=== PATIENT | female | born 1995 | race Caucasian/White ===

== ENCOUNTER 2021-11-14 16:06 | Outpatient (CLI) | payer OTHER, SELFPAY ==
--- NOTE | ~2021-11-14 | US_ITS ---
EXAMINATION: US OB <=14 wk fetus w TV DATE: 11/14/2021 17:08 INDICATION: Cramping in . TECHNIQUE: Real-time transabdominal and transvaginal pelvic ultrasound was performed. COMPARISON: None. FINDINGS: TRANSABDOMINAL ULTRASOUND: The uterus measures 6.3 x 4.0 x 4.5 cm. TRANSVAGINAL ULTRASOUND: There is no visible intrauterine gestational sac. The endometrial complex me asures 14 mm in thickness. The right ovary measures 4.3 x 2.2 x 2.4 cm. The left ovary is not visuali zed. There is physiologic free fluid in the pelvis. IMPRESSION: 1. No visible intrauterine gestational sac, which may be normal in early . Spontaneous abor tion and ectopic are not excluded. Serial beta hCGs are recommended. Reviewed, dictated and finalized at location A. PROVOST IMPRESSION: 1. No visible intrauterine gestational sac, which may be normal in early pregn nohemy. Spontaneous and ectopic are not excluded. Serial beta hCGs are recommended.
== END 2021-11-14 16:07 | disposition home or self-care (01) ==
LOC: ANHIMG 16:12
PROVIDERS: Visit Provider Obstetrics & Gynecology Gynecology
DX: O26.899 Other specified pregnancy related conditions, unspecified trimester (principal); Z3A.00 Weeks of gestation of pregnancy not specified
CPT/HCPCS: 76801; 76817

== ENCOUNTER 2021-11-17 15:33 | Outpatient (RCR) | payer OTHER, SELFPAY | END 2022-02-13 23:59 | disposition home or self-care (01) | LOC: ANHLAB 15:33 | PROVIDERS: PCP Nurse Practitioner Family; Visit Provider Obstetrics & Gynecology Gynecology | DX: Z32.01 Encounter for pregnancy test, result positive (principal) | CPT/HCPCS: 36415; 84702 ==

== ENCOUNTER 2021-12-05 15:17 | Outpatient (CLI) | payer OTHER, SELFPAY ==
--- NOTE | ~2021-12-05 | US_ITS ---
EXAMINATION: US OB <=14 wk fetus w TV DATE: 12/05/2021 15:56 INDICATION: of uncertain date TECHNIQUE: Real-time pelvic transabdominal and transvaginal ultrasound was performed. COMPARISON: 11/14/2021 FINDINGS: The uterus measures 9.9 x 5.2 x 3.9 cm. There is an intrauterine gestational sac. There is a 1.3 x 1.1 cm hypoechoic area adjacent to the gestational sac. A yolk sac is identified. hear t motion is identified measuring 129 beats per minute (bpm) by M-mode Doppler. The crown rump l ength measures 11 mm , which correlates with an estimated gestational age of 7 weeks and 1 day(s) (+/ -) 5 day(s). The right ovary measures 3.7 x 2.4 x 2.2 cm. The left ovary measures 3.5 x 2.1 x 1.1 cm. There is nor mal vascular flow in the ovaries. There is no free fluid in the pelvis. IMPRESSION: 1. Live intrauterine with an estimated gestational age of 7 weeks and 1 day(s) (+/-) 5 day( s) and an estimated delivery date of 07/23/2022. 2. Small subchorionic hematoma. Reviewed, dictated and finalized at location A. NSION AGENT IMPRESSION: 1. Live intrauterine with an estimated gestational age of 7 weeks and 1 day(s) (+/-) 5 day(s) and an estimated delivery date of 07/23/2022. 2. Small subchorionic hematoma.
== END 2021-12-05 15:18 | disposition home or self-care (01) ==
LOC: ANHIMG 15:20
PROVIDERS: PCP Nurse Practitioner Family; Visit Provider Obstetrics & Gynecology Gynecology
DX: Z36.87 Encounter for antenatal screening for uncertain dates (principal); O46.91 Antepartum hemorrhage, unspecified, first trimester; Z3A.01 Less than 8 weeks gestation of pregnancy
CPT/HCPCS: 76801; 76817

== ENCOUNTER 2021-12-27 15:43 | Outpatient (CLI) | payer OTHER, SELFPAY ==
--- NOTE | ~2021-12-27 | US_ITS ---
EXAMINATION: US OB <= 14 weeks fetus DATE: 12/27/2021 16:15 INDICATION: Follow-up subchorionic hematoma TECHNIQUE: Real-time transabdominal obstetric ultrasound. FINDINGS: Ultrasound dated 12/05/2021 and 11/14/2021 The uterus measures 12 x 5.6 x 7.7 cm. There is an intrauterine gestational sac, with pole iden tified. There is a small residual subchorionic hematoma measuring 8 x 5 x 5 mm, decreased in size com pared with prior study when it measured 1.3 x 1.1 x 0.6 cm. The crown rump length measures 3.64 cm.. heart tones are identified measuring 161 bpm.. The ovaries are within normal limits. IMPRESSION: 1. SL IUP with an EGA of 10 weeks, 2 days (EDC by initial ultrasound of 07/23/2022). 2: Decreased size of small residual subchorionic hemorrhage. Reviewed, dictated and finalized at location A. IMPRESSION: 1. SL IUP with an EGA of 10 weeks, 2 days (EDC by initial ultrasound of 022). 2: Decreased size of small residual subchorionic hemorrhage.
== END 2021-12-27 15:44 | disposition home or self-care (01) ==
LOC: ANHIMG 15:44
PROVIDERS: PCP Nurse Practitioner Family; Visit Provider Obstetrics & Gynecology Gynecology
DX: O36.8910 Maternal care for other specified fetal problems, first trimester, not applicable or unspecified (principal); Z3A.10 10 weeks gestation of pregnancy
CPT/HCPCS: 76801

== ENCOUNTER 2022-01-24 15:39 | Outpatient (CLI) | payer OTHER, SELFPAY ==
--- NOTE | ~2022-01-24 | US_ITS ---
EXAMINATION: US OB follow up DATE: 01/24/2022 16:10 INDICATION: Subchorionic hematoma during first trimester TECHNIQUE: Real-time ultrasound of the pelvis was performed. The interpreting radiologist was not pre sent for the study. COMPARISON: 12/27/2021 FINDINGS: There is a single living fetus in breech presentation. The placenta is anterior. A 1.7 x 1. 8 x 0.7 cm hypoechoic area persists adjacent to the gestational sac. cardiac activity and movement are noted. heart rate is 140 beats per minute (bpm). The amniotic fluid index is subj ectively normal. The following biometric data were obtained: Biparietal diameter (BPD): 2.9 cm; head circumference (HC): 10.3 cm; abdominal circumference (AC): 9. 9 cm; femur length (FL): 1.6 cm. These measurements are concordant. Estimated weight is 118 g +/- 17 g, which correlates with the 94th percentile when 07/23/2022 i s used as estimated date of delivery. As single measurements, these parameters are each equal to the following estimated gestational ages w ith ranges of +/- 2 standard deviations: BPD: 15 weeks 1 days +/- 1 weeks 1 days. HC: 14 weeks 6 days +/- 1 weeks 1 days. AC: 16 weeks 0 days +/- 1 weeks 5 days. FL: 14 weeks 4 days +/- 1 weeks 3 days. estimated gestational age based solely on measurements from this exam is 15 weeks 1 days +/- 1 weeks 0 days. IMPRESSION: 1. Single living fetus in breech presentation. 2. Persistent hypoechoic area adjacent to the gestational sac, slightly increased in size, probable s ubchronic hemorrhage. Reviewed, dictated and finalized at location F. IMPRESSION: 1. Single living fetus in breech presentation. 2. Persistent hypoechoic area adjacent to the gestational sac, slightly increas ed in size, probable subchronic hemorrhage.
== END 2022-01-24 15:40 | disposition home or self-care (01) ==
LOC: ANHIMG 15:40
PROVIDERS: PCP Nurse Practitioner Family; Visit Provider Obstetrics & Gynecology Gynecology
DX: O36.8920 Maternal care for other specified fetal problems, second trimester, not applicable or unspecified (principal); Z3A.15 15 weeks gestation of pregnancy
CPT/HCPCS: 76816

== ENCOUNTER 2022-03-09 15:23 | Outpatient (CLI) | payer OTHER, SELFPAY ==
--- NOTE | ~2022-03-09 | US_ITS ---
EXAMINATION: US OB /maternal detail DATE: 03/09/2022 16:59 INDICATION: Second trimester anatomic survey, subchronic hemorrhage follow-up TECHNIQUE: Real-time ultrasound of the pelvis was performed. COMPARISON: None. FINDINGS: There is a single living fetus in transverse lie. The placenta is anterior. The previously described hematoma is not identified. heart rate is 136 beats per minute (bpm). cardiac activity a nd movement are noted. The amniotic fluid index is 11.6 cm which is normal. The following anatomy was identified as normal: 4 chamber heart 3 vessel cord cord insertion kidneys urinary bladder stomach spine diaphragm ventricles cisterna magna cerebellum The following biometric data were obtained: Biparietal diameter (BPD): 4.7 cm; head circumference (HC): 18..5 cm; abdominal circumference (AC): 1 6.5 cm; femur length (FL): 3.7 cm. These measurements are concordant. Estimated weight is 430 g +/- 64 g, which correlates with the 91st percentile when 07/23/2022 i s used as estimated date of delivery. As single measurements, these parameters are each equal to the following estimated gestational ages w ith ranges of +/- 2 standard deviations: BPD: 20 weeks 1 days +/- 1 weeks 5 days. HC: 20 weeks 6 days +/- 1 weeks 3 days. AC: 21 weeks 4 days +/- 2 weeks 0 days. FL: 21 weeks 6 days +/- 1 weeks 6 days. estimated gestational age based solely on measurements from this exam is 21 weeks 1 days +/- 1 weeks 3 days. IMPRESSION: 1. Single living fetus in transverse lie. 2. Estimated weight is 430 g +/- 64 g, which correlates with the 91st percentile when 2 is used as estimated date of delivery. Reviewed, dictated and finalized at location F. IMPRESSION: 1. Single living fetus in transverse lie. 2. Estimated weight is 430 g +/- 64 g, which correlates with the 91st per centile when 07/23/2022 is used as estimated date of delivery.
== END 2022-03-09 15:24 | disposition home or self-care (01) ==
PROVIDERS: PCP Nurse Practitioner Family; Visit Provider Obstetrics & Gynecology Gynecology
DX: O36.8910 Maternal care for other specified fetal problems, first trimester, not applicable or unspecified (principal)
CPT/HCPCS: 76805

== ENCOUNTER 2022-05-22 15:33 | Outpatient (CLI) | payer OTHER, SELFPAY ==
--- NOTE | ~2022-05-22 | US_ITS ---
EXAMINATION: US OB follow up DATE: 05/22/2022 16:44 INDICATION: Size greater than dates. TECHNIQUE: Real-time ultrasound of the pelvis was performed. COMPARISON: Ultrasound 03/09/2022, 11/14/2021, 12/05/2021 FINDINGS: There is a single living fetus in vertex presentation. The placenta is anterior. heart rate is 155 beats per minute (bpm). The amniotic fluid index is 18.4 cm, which is normal. The cervical lengt h is 3.7 cm on transabdominal images. The following biometric data were obtained: Biparietal diameter (BPD): 8.2 cm; head circumference (HC): 30.1 cm; abdominal circumference (AC): 27 .5 cm; femur length (FL): 6.2 cm. These measurements are concordant. Estimated weight is 1904 g +/- 286 g, which correlates with the 71st percentile when 07/23/22 i s used as estimated date of delivery. As single measurements, these parameters are each equal to the following estimated gestational ages: BPD: 34 weeks 2 days. HC: 33 weeks 3 days. AC: 31 weeks 4 days. FL: 32 weeks 0 days. estimated gestational age based solely on measurements from this exam is 32 weeks 6 days +/- 2 weeks 2 days. IMPRESSION: 1. Single living fetus in vertex presentation. 2. Estimated weight is 1904 g +/- 286 g, which correlates with the 71st percentile when is used as estimated date of delivery. This date was set by ultrasound on 12/05/21. Reviewed, dictated and finalized at location A. IMPRESSION: 1. Single living fetus in vertex presentation. 2. Estimated weight is 1904 g +/- 286 g, which correlates with the 71st percentile when 07/23/22 is used as estimated date of delivery. This date was s et by ultrasound on 12/05/21.
== END 2022-05-22 15:34 | disposition home or self-care (01) ==
PROVIDERS: PCP Nurse Practitioner Family; Visit Provider Obstetrics & Gynecology Gynecology
DX: O36.63X0 Maternal care for excessive fetal growth, third trimester, not applicable or unspecified (principal); Z3A.32 32 weeks gestation of pregnancy
CPT/HCPCS: 76816

== ENCOUNTER 2022-07-06 17:54 | Inpatient (IN) | payer OTHER, SELFPAY ==
[2022-07-06] VITALS (51 sets, daily range): BP systolic 99–140; BP diastolic 53–94; PULSE 70–101; TEMP 36.4–36.9; O2SAT 98–100; BMI 29.5
[2022-07-06] MEDS: LACTATED RINGERS 1,000 ML 125 ML IV CONT ×2 (18:46→20:19)
[2022-07-06 18:54] LABS: Basophils Percent Auto 0.2 % (0.2-1.2); Eosinophils Absolute Auto 0.1 K/mm3 (0-0.3); Eosinophils Percent Auto 0.6 % (0-4.4); Hematocrit 44.1 % (37.0-47.0); Hemoglobin 14.7 g/dL (12.0-15.0); Immature Granulocyte Absolute 0.04 K/mm3 (0.00-0.031); Immature Granulocyte Percent A 0.5 % (0-0.5); Lymphocytes Absolute Auto 1.87 K/mm3 (0.9-3.2); Lymphocytes Percent Auto 22.2 % (18.3-44.2); Mean Corpuscular HGB Conc 33.3 g/dl (32-36); Mean Corpuscular Hemoglobin 31.6 pg (26-34); Mean Corpuscular Volume 94.8 fl (80-100); Mean Platelet Volume 10.4 fl (7.4-10.4); Monocytes Absolute Auto 0.6 K/mm3 (0.1-0.6); Monocytes Percent Auto 6.8 % (2.6-8.5); Neutrophils Absolute Auto 5.9 K/mm3 (1.3-6.7); Neutrophils Percent Auto 69.7 % (45.5-73.1); Platelet Count Result 247 k/mm3 (150-375); Red Blood Count 4.65 M/mm3 (4.2-5.4); Red Cell Distribution Width 12.8 % (11.5-14.5); White Blood Count 8.4 K/mm3 (4.5-10.0)
--- NOTE | 2022-07-06 19:22 | WPDANESEPP ---
Anes - Eval Pre Procedure Procedure: labor epidural Date/Time: 07/06/22 19:22 Surgeon: liborio Preop Diagnosis: pain during labor Pre Op Diagnosis: LEAKING Patient Data Age: 26 Gender: F Height: Weight: Allergies Allergy/AdvReac Type Severity Reaction Status Date / Time No Known Allergies Allergy Verified 06/25/22 15:39 Home Medications Medication Instructions Recorded Confirmed Type ergocalciferol (vitamin D2) 1,250 1,250 mcg PO WEEKLY 06/25/22 06/25/22 History mcg (50,000 unit) capsule (Vitamin D2) magnesium 250 mg tablet 250 mg PO BID 06/25/22 06/25/22 History prenat.vits,grzegorz,dyl-bkxz-ltiev 1 tablet PO DAILY 06/25/22 06/25/22 History Laboratory Tests 07/06/22 07/06/22 18:46 18:46 WBC 8.4 K/mm3 K/mm3 (4.5-10.0) RBC 4.65 M/mm3 M/mm3 (4.2-5.4) Hgb 14.7 g/dL g/dL (12.0-15.0) Hct 44.1 % % (37.0-47.0) MCV 94.8 fl fl (80-100) MCH 31.6 pg pg (26-34) MCHC 33.3 g/dl g/dl (32-36) RDW 12.8 % % (11.5-14.5) Plt Count 247 k/mm3 k/mm3 (150-375) MPV 10.4 fl fl (7.4-10.4) Immature Gran % (Auto) 0.5 % % (0-0.5) Neut % (Auto) 69.7 % % (45.5-73.1) Lymph % (Auto) 22.2 % % (18.3-44.2) [place] % (Auto) 6.8 % % (2.6-8.5) Eos % (Auto) 0.6 % % (0-4.4) Baso % (Auto) 0.2 % % (0.2-1.2) Lymph # (Auto) 1.87 K/mm3 K/mm3 (0.9-3.2) [place] # (Auto) 0.6 K/mm3 K/mm3 (0.1-0.6) Eos # (Auto) 0.1 K/mm3 K/mm3 (0-0.3) Baso # (Auto) 0.0 K/mm3 K/mm3 (0.0-0.1) Abs Immat Gran (auto) 0.04 K/mm3 H K/mm3 (0.00-0.031) Absolute Neuts (auto) 5.9 K/mm3 K/mm3 (1.3-6.7) Absolute Nucleated RBC 0.0 K/mm3 K/mm3 (0.0-0.012) Nucleated RBC % 0.0 % % (0.0-0.2) RPR Pending Patient hx anesthesia problems: none Family hx anesthesia problems: none Results Review: All pre-operative results and documents have been reviewed as part of the pre-operative evaluation. [facility] Past Medical History Medical History (Updated 07/06/22 @ 19:23 by Zaida Delgado CRNA) Intrauterine Family History Family History (Updated 06/25/22 @ 15:50 by Kathryn Ceballos RN) Mother Diabetes mellitus Osteoporosis History of thyroidectomy, total Thyroid ca Social History Social History Substance use: never Spiritual care concerns: No Exam Day of Procedure 07/06/22 19:22
--- NOTE | 2022-07-06 20:14 | LDADM ---
This patient, Marie Greene, was admitted to Labor/Delivery/Recovery 108 on 07/06/22 at 17:54. Plans for labor, pain management and were discussed with patient. Patient/family oriented to hospital policies and general routines including ID bracelet, bed and alarms, visiting hours, pain management, procedures, bathroom and other care routines, personal items, smoking policy, room service/diet and guest tray routines, security routines, and visiting hours. Patient/Family are encouraged to report perceived risks to care and to ask questions if they do not understand what they are told or what they should do. See OBIX for further documentation.
[2022-07-07] VITALS (62 sets, daily range): BP systolic 101–173; BP diastolic 54–151; PULSE 69–144; RESP 16; TEMP 36.6–37.3; O2SAT 95–100
[2022-07-07] MEDS: OXYTOCIN 30 UNITS/NS 500 ML 30 UNITS/500 ML BAG IV CONT (00:55)
[2022-07-07] MEDS: LACTATED RINGERS 1,000 ML 125 ML IV CONT (01:45)
--- NOTE | 2022-07-07 01:59 | WPDHPUPDATE1 ---
History and Physical Update Update Date/Time: 07/07/22 01:59 History and Physical has been reviewed, including an updated exam of the patient. There are NO changes in the patient's condition. Risks, benefits, and alternatives have been discussed and questions answered. Patient agrees to proceed with procedure.
--- NOTE | 2022-07-07 01:59 | WPDOBADMIT ---
Obstetrics - Admit Note Admission Note: record reviewed. No pertinent additions to the history and/or any subsequent changes in the physical findings that are not consistent with the expected course of the were found. Additions to the history and/or subsequent changes in the physical findings follow. None.
--- NOTE | 2022-07-07 02:00 | PM.OBPRVD ---
OB - Delivery Note Procedure Induction method: None Delivery augmentation: Pitocin Delivery monitor: External FHT and External Uterine Route of delivery: Episiotomy description: None Laceration Description: Perineal - 2nd Degree Delivery repair: chromic Specimen: No Quantitative Blood Loss (ml): 400 Anesthesia type: Epidural Disposition: Floor Complications: none Narrative: Patient prepped and draped in the usual manner for this procedure. Maternal expulsive efforts readily delivered vertex in the rest of baby without difficulty. Cord was clamped and cut placenta delivered spontaneously. Cervix vagina vulva were inspected with second-degree midline laceration noted. This was approximated using 2-0 chromic running interlocking manner with good approximation of the vaginal tissue deep to huynh the subcuticular layer. There was also multiple small oozing sites from the vaginal wall which did not require suturing and packing was left in placed. At this point the procedure was considered terminated with the immediate postop physician mother and baby doing well. Baby Weeks of gestation at delivery: 37 Infant gender: Male Weight (pounds): 7 Weight (ounces): 5 presentation: vertex Placenta delivery description: Spontaneous Cord Vessel Description: 3 Vessels score one minute: 8 score five minutes: 9
[2022-07-07] MEDS: BENZOCAINE 20% AER SPR (*SP) 56 GM CAN 1 SPRAY TOPICAL (04:06)
[2022-07-07] MEDS: WITCH HAZEL 40 PADS 1 PAD TOPICAL (04:06)
[2022-07-07] MEDS: IBUPROFEN 600 MG TABLET PO ×2 (04:06→10:43)
--- NOTE | 2022-07-07 05:36 | PC.NURSE ---
Patient transferred to post room #283 via (W/C). Support person present. Oriented to unit, room, information board, rooming in, admission packet and security measures. Patient verbalizes understanding.
--- NOTE | 2022-07-07 08:00 | PC.NURSE ---
Breast pump provided due to separation from infant. Instructions given on cleaning, care, usage, that there should be no pain, pumping schedule for milk production, collection, and storage of human milk. Patient was assessed for correct placement, flange size, to pump for comfort and nipple stretching/stimulation for adequate milk production every 3 hours (8 times in 24 hours).
[2022-07-07] MEDS: ACETAMINOPHEN 325 MG TABLET 650 MG PO (08:03)
[2022-07-07] MEDS: DOCUSATE SODIUM 100 MG CAPSULE PO (08:03)
[2022-07-07] MEDS: MULTIVIT/MIN/PREN/FOL AC/IRON TABLET 1 TAB PO (08:03)
--- NOTE | 2022-07-07 08:29 | P.DS_ITS ---
DS: Admitting Diagnosis Discharge Date 07/07/2022 Admitting Diagnosis OB - DS: Summary OB Procedures : None OB Procedures Intrapartum: Spontaneous Vag Delivery OB Procedures: : None Time Spent with Patient Time attestation: Total time spent providing and/or coordinating discharge services: DS: Data Data Completed and Pending Labs on day of discharge: Labs from last 24 hours 07/06/22 07/06/22 07/06/22 18:46 18:46 18:46 WBC 8.4 RBC 4.65 Hgb 14.7 Hct 44.1 MCV 94.8 MCH 31.6 MCHC 33.3 RDW 12.8 Plt Count 247 MPV 10.4 Immature Gran % (Auto) 0.5 Neut % (Auto) 69.7 Lymph % (Auto) 22.2 [place] % (Auto) 6.8 Eos % (Auto) 0.6 Baso % (Auto) 0.2 Lymph # (Auto) 1.87 [place] # (Auto) 0.6 Eos # (Auto) 0.1 Baso # (Auto) 0.0 Abs Immat Gran (auto) 0.04 H Absolute Neuts (auto) 5.9 Absolute Nucleated RBC 0.0 Nucleated RBC % 0.0 RPR Pending Blood Type A Positive Antibody Screen Negative Discharge Plan Discharge Attending physician on discharge: Rahat Wilson Discharging Clinician: Rahat Wilson Patient Disposition: Home, Self-Care Activity: as tolerated Diet: as tolerated Patient Instructions: Antibiotic Form Stand Alone Forms: General Discharge Information Follow-up/Referrals: Zena Spence MD [Physician] - 3 Weeks Discharge Medications: New ibuprofen 600 mg Tablet 600 mg PO Q6H PRN (Reason: Cramping) Qty: 30 0RF Continued magnesium 250 mg Tablet 250 mg PO BID ergocalciferol (vitamin D2) [Vitamin D2] 1,250 mcg (50,000 unit) Capsule 1,250 mcg PO WEEKLY #2 Tablet 1 tablet PO DAILY Date of admission: 07/06/22 17:54 Primary Care Provider: Melchor,Criss Piña Admitting Provider: Zena Spence Attending physician on admission: Zena Spence Condition: Stable
[2022-07-07] MEDS: MEASLES,MUMPS,RUBELLA VACCINE 0.5 ML VIAL SUB-Q (12:10)
[2022-07-07] MEDS: TETANUS,DIPHTHERIA,AC PERTUSSIS ADULT (0.5 ML) BOOSTRIX IM (12:11)
[2022-07-09 07:05] LABS: Rapid Plasma Reagin Non-Reactive (NonReactive)
== END 2022-07-07 13:17 | disposition home or self-care (01) | DRG 807 ==
LOC: ANHLDR 18:50 → ANHOB2 07-07 08:30 → ANHLDR 07-09 10:37 → ANHOB2 07-09 10:37
PROVIDERS: Admitting Provider Obstetrics & Gynecology; PCP Nurse Practitioner Family; Visit Provider Obstetrics & Gynecology
DX: O63.1 Prolonged second stage (of labor) (principal); Z37.0 Single live birth; O70.1 Second degree perineal laceration during delivery; O76 Abnormality in fetal heart rate and rhythm complicating labor and delivery; Z3A.37 37 weeks gestation of pregnancy
CPT/HCPCS: 36415; 85025; 86592; 86850; 86900; 86901; 90710; 90715; A9270; J2590; J2795; J7120

== ENCOUNTER 2024-01-03 10:43 | Outpatient (CLI) | payer OTHER, SELFPAY ==
--- NOTE | ~2024-01-03 | US_ITS ---
EXAMINATION: US OB <= 14 weeks fetus DATE: 01/03/2024 12:57 INDICATION: First trimester dating and viability assessment TECHNIQUE: Real-time pelvic transabdominal and transvaginal ultrasound was performed. COMPARISON: None. FINDINGS: The uterus measures 12.5 x 5.9 x 7.1 cm. There is an intrauterine gestational sac. A yolk s ac is identified. heart motion is identified measuring 176 beats per minute (bpm) by M-mode Dop pler. The crown rump length measures 2.3 cm, which correlates with an estimated gestational age of 9 weeks and 0 day(s) (+/-) 6 day(s). The ovaries are not visualized however no adnexal abnormality is seen. There is no free fluid in the pelvis. IMPRESSION: 1. Live intrauterine with an estimated gestational age of 9 weeks and 0 day(s) (+/-) 6 day( s) and an estimated delivery date of 08/07/2024. Reviewed, dictated and finalized at location A. IMPRESSION: 1. Live intrauterine with an estimated gestational age of 9 weeks and 0 day(s) (+/-) 6 day(s) and an estimated delivery date of 08/07/2024.
== END 2024-01-03 10:44 ==
LOC: MICIMG 10:44
PROVIDERS: PCP Advanced Practice Midwife; Visit Provider Advanced Practice Midwife
DX: O36.80X0 Pregnancy with inconclusive fetal viability, not applicable or unspecified (principal); Z3A.01 Less than 8 weeks gestation of pregnancy
CPT/HCPCS: 76801

== ENCOUNTER 2024-06-26 07:47 | Observation (INO) | payer OTHER, SELFPAY ==
[2024-06-26 08:12] VITALS: BP 121/72; PULSE 83
[2024-06-26 08:15] VITALS: BMI 28.9
[2024-06-26 08:54] LABS: Add Urine Microscopic? YES; Appearance Urine Cloudy (Clear); Bacteria Urine 1+ /hpf; Bilirubin Urine Negative (Negative); Blood Urine Negative (Negative); Color Urine Yellow (Yellow); Glucose Urine UA Negative (Negative); Ketones Urine Trace mg/dL (Negative); Leukocyte Esterase Ur Trace LEU/UL (Negative); Nitrate Urine Negative (Negative); Non Pathogenic Casts 0-2; Protein Urine Trace mg/dL (Negative); Specific Grav Ur 1.024 (1.001-1.035); Squamous Epithelial Cell Urine Many /hpf (Few); pH Urine 6.5 (5.0-9.0)
--- NOTE | 2024-06-26 10:21 | OBADM ---
This patient, Marie Greene, admitted to the OB room Labor/Delivery/Recovery 104 for observation. Patient/family oriented to hospital policies and general routines including ID bracelet, bed and alarms, visiting hours, pain management, procedures, bathroom and other care routines, personal items, smoking policy, room service/diet, and visiting hours. Patient/Family are encouraged to report perceived risks to care and to ask questions if they do not understand what they are told or what they should do.
[2024-06-26 10:23] LABS: OBXCEM ROM Plus Negative (Negative)
--- NOTE | 2024-06-29 14:37 | PM.OBTRLD ---
OB - Triage/Final Diagnosis Visit Information Date of evaluation: 06/26/24 Reason for evaluation: threatened labor (leaking of fluid) Comments/Additional reasons for admission: I have assessed the risk for this patient, Marie Greene, and determined that she would benefit from observation care. Evaluation Laboratory results: Laboratory Tests 06/26/24 06/26/24 08:28 08:34 Urine Color Yellow Urine Appearance Cloudy H Urine pH 6.5 Ur Specific [place] 1.024 Urine Protein Trace Urine Glucose (UA) Negative Urine Ketones Trace H Ur Blood (Man) Negative Urine Nitrate Negative Urine Bilirubin Negative Urine Urobilinogen 1.0 Leukocyte Esterase Rfl Trace H Urine RBC 3-5 H Urine WBC 6-10 H Ur Squamous Epith Cells Many H Urine Bacteria 1+ H Urine Casts 0-2 Membranes Rupture Rom plus negative Comments: Pt evaluated on unit by RN. Plan of care discussed with CNM. FHTs reassuring. VSS. No evidence of active labor or ROM.
== END 2024-06-26 09:30 | disposition home or self-care (01) ==
PROVIDERS: Admitting Provider Obstetrics & Gynecology Gynecology; PCP Advanced Practice Midwife; Visit Provider Obstetrics & Gynecology Gynecology
DX: O47.03 False labor before 37 completed weeks of gestation, third trimester (principal); Z3A.33 33 weeks gestation of pregnancy
CPT/HCPCS: 81001; 84112; 87086; 87088; G0378; G0379

== ENCOUNTER 2024-08-05 05:58 | Inpatient (IN) | payer OTHER, SELFPAY ==
[2024-08-05] VITALS (98 sets, daily range): BP systolic 106–154; BP diastolic 48–115; PULSE 76–171; RESP 16–20; TEMP 36.1–36.9; O2SAT 90–100; BMI 29.5
[2024-08-05] MEDS: LACTATED RINGERS 1,000 ML 125 ML IV CONT ×2 (06:24→13:25)
[2024-08-05] MEDS: AMPICILLIN 2 GM/NS 100 ML 2 GM/100 ML BAG IVPB (06:25)
--- NOTE | 2024-08-05 06:30 | LDADM ---
This patient, Marie Greene, was admitted to Labor/Delivery/Recovery 105 on 08/05/24 at 05:58. Plans for labor, pain management and were discussed with patient. Patient/family oriented to hospital policies and general routines including ID bracelet, bed and alarms, visiting hours, pain management, procedures, bathroom and other care routines, personal items, smoking policy, room service/diet and guest tray routines, security routines, and visiting hours. Patient/Family are encouraged to report perceived risks to care and to ask questions if they do not understand what they are told or what they should do. See OBIX for further documentation.
[2024-08-05 06:38] LABS: Basophils Percent Auto 0.1 % (0.2-1.2); Eosinophils Absolute Auto 0.1 K/mm3 (0-0.3); Eosinophils Percent Auto 1.3 % (0-4.4); Hematocrit 39.9 % (37.0-47.0); Hemoglobin 13.7 g/dL (12.0-15.0); Immature Granulocyte Absolute 0.05 K/mm3 (0.00-0.031); Immature Granulocyte Percent A 0.7 % (0-0.5); Lymphocytes Absolute Auto 1.48 K/mm3 (0.9-3.2); Lymphocytes Percent Auto 20.8 % (18.3-44.2); Mean Corpuscular HGB Conc 34.3 g/dl (32-36); Mean Corpuscular Hemoglobin 32.5 pg (26-34); Mean Corpuscular Volume 94.5 fl (80-100); Mean Platelet Volume 10.4 fl (7.4-10.4); Monocytes Absolute Auto 0.5 K/mm3 (0.1-0.6); Monocytes Percent Auto 6.7 % (2.6-8.5); Neutrophils Percent Auto 70.4 % (45.5-73.1); Platelet Count Result 187 k/mm3 (150-375); Red Blood Count 4.22 M/mm3 (4.2-5.4); Red Cell Distribution Width 13.1 % (11.5-14.5); White Blood Count 7.1 K/mm3 (4.5-10.0)
[2024-08-05 07:18] LABS: Rapid Plasma Reagin Non-Reactive (NonReactive)
[2024-08-05 07:29] LABS: HIV 1/2 Ab P24 Ag Result Negative (Negative)
--- NOTE | 2024-08-05 08:11 | PM.OBPNLAB ---
Pain Control Date/time seen: 08/05/24 08:05 Pain control: tolerating well Comments: Denies feeling any regular, painful ctx Pelvic Exam Dilation (cm): 5 Effacement (%): 80 station: -1 Amniotic membrane status: Intact Comments: head very well applied to cervix. Contractions Monitor mode: External Contraction pattern: Irregular Contraction phase: Resting Contraction intensity: Mild Status Comments: FHT baseline 135 with moderate variability and accelerations. Assessment and Plan Comments: CNM to bedside. Discussed plan of care and option for amniotomy. Discussed risks, benefits, and expectations of breaking water. Patient is agreeable. Ampicillin for GBS given 2 hours prior. Amniotomy performed and there was a scant return of clear amniotic fluid. Patient tolerated procedure well. Anticipate vaginal . Dr. Spence updated.
[2024-08-05] MEDS: fentaNYL CITRATE INJ (*CRX) 100 MCG/2 ML VIAL 50 MCG IV PUSH (10:31)
[2024-08-05] MEDS: ONDANSETRON INJ 4 MG/2 ML VIAL IV PUSH (10:31)
--- NOTE | 2024-08-05 10:46 | PM.OBPNLAB ---
Pain Control Date/time seen: 08/05/24 1035 Comments: CNM called unit, spoke with RN Contractions Monitor mode: External Contraction frequency: 3 (2-5) Status Comments: FHTs 135, moderate variability with accelerations. Assessment and Plan Plan: continuous present management Comments: Feeling more frequent contractions. Requesting epidural. CNM reviewed tracing from office. Dr. Spence updated.
[2024-08-05] MEDS: AMPICILLIN 1 GM/NS 50 ML 1 GM/50 ML BAG IVPB (10:54)
--- NOTE | 2024-08-05 11:35 | P.PNAN_ITS ---
Anes - Initial Pre Proc Eval Date/Time: 08/05/24 11:35 Surgeon: Zena Spence MD Pre Op Diagnosis: IOL Patient Data Age: 28 Gender: F Height: 1.63 m Weight: 78 kg Last Vital Signs Temp 36.2 C L 08/05/24 10:00 Pulse 87 08/05/24 11:30 Resp 16 08/05/24 10:00 BP 132/64 08/05/24 11:30 Pulse Ox 100 08/05/24 11:32 O2 Del Method Room Air 08/05/24 06:29 Allergies Allergy/AdvReac Type Severity Reaction Status Date / Time No Known Allergies Allergy Verified 07/10/24 15:28 Home Medications Medication Instructions Recorded Confirmed Type ergocalciferol (vitamin D2) 1,250 1,250 mcg PO WEEKLY 06/25/22 07/10/24 History mcg (50,000 unit) capsule (Vitamin D2) magnesium 250 mg tablet 250 mg PO BID 06/25/22 08/05/24 History prenat.vits,grzegorz,vzc-ytfo-wnoeh 1 tablet PO DAILY 06/25/22 07/10/24 History aspirin 81 mg tablet 81 mg PO DAILY 07/10/24 08/05/24 History Laboratory Tests 08/05/24 06:13 WBC 7.1 K/mm3 (4.5-10.0) RBC 4.22 M/mm3 (4.2-5.4) Hgb 13.7 g/dL (12.0-15.0) Hct 39.9 % (37.0-47.0) MCV 94.5 fl (80-100) MCH 32.5 pg (26-34) MCHC 34.3 g/dl (32-36) RDW 13.1 % (11.5-14.5) Plt Count 187 k/mm3 (150-375) MPV 10.4 fl (7.4-10.4) Immature Gran % (Auto) 0.7 H % (0-0.5) Neut % (Auto) 70.4 % (45.5-73.1) Lymph % (Auto) 20.8 % (18.3-44.2) [place] % (Auto) 6.7 % (2.6-8.5) Eos % (Auto) 1.3 % (0-4.4) Baso % (Auto) 0.1 L % (0.2-1.2) Lymph # (Auto) 1.48 K/mm3 (0.9-3.2) [place] # (Auto) 0.5 K/mm3 (0.1-0.6) Eos # (Auto) 0.1 K/mm3 (0-0.3) Baso # (Auto) 0.0 K/mm3 (0.0-0.1) Abs Immat Gran (auto) 0.05 H K/mm3 (0.00-0.031) Absolute Neuts (auto) 5.0 K/mm3 (1.3-6.7) Absolute Nucleated RBC 0.000 K/mm3 (0.0-0.012) Nucleated RBC % 0.0 % (0.0-0.2) RPR Non-reactive (NonReactive) HIV 1&2 Ab/P24 Ag 4thGn Negative (Negative) Blood Type A Positive Antibody Screen Negative Patient hx anesthesia problems: none Family hx anesthesia problems: none Results Review: All pre-operative results and documents have been reviewed as part of the pre- operative evaluation. ON LICENSE OF [facility] Past Medical History Medical History Intrauterine Family History Family History Mother Diabetes mellitus Osteoporosis History of thyroidectomy, total Thyroid ca Social History Social History Smoking status: Never smoker Second hand tobacco smoke exposure: No Substance use: never Do You Feel Safe in your Home?: Yes Lack of Transportation: No Lack of Food: Never True Current Housing: I Have Housing Concerned About Future Housing: No Difficulty Paying Gas/Electric Bills: No Difficulty Paying for Meds: No Currently Unemployed: No Education: Bachelor's Degree Difficulty w/ Childcare or Family Care: No Spiritual care concerns: No Anes - Eval Final PreProcedure Day of Procedure 08/05/24 11:35 Patient weight: overweight Heart: regular rate and rhythm Lungs: clear to auscultation Neurological: alert and oriented Last oral intake: >/= 8 hours ASA classification: II Emergent: no Anesthetic plan: proceed Anesthesia type and monitoring: regional epidural and standard monitoring Results Review: All pre-operative results and documents have been reviewed as part of the pre- operative evaluation. Informed Consent: The patient's anesthetic plan and its attendant risks and benefits were discussed with the patient/family/POA. Questions were solicited and answers provided to the satisfaction of the patient/family/POA.
--- NOTE | 2024-08-05 12:10 | PM.OBPNLAB ---
Pain Control Date/time seen: 08/05/24 1210 Pain control: tolerating well and epidural Pelvic Exam Dilation (cm): 10 Effacement (%): 100 station: +1 Amniotic membrane status: Ruptured Contractions Monitor mode: External Contraction frequency: 2 (2-3) Contraction duration: 60 (60-80) Contraction pattern: Regular Contraction phase: Contraction Contraction intensity: Strong/Firm Status Comments: FHT baseline 115 with moderate variability. +accelerations and occasional variable decels. Assessment and Plan Assessment: active labor Comments: CNM to bedside at aprox 1130. Straight cathed. Pushed with pt during ctx x 45 min with minimal descent. Plan to allow passive descent d/t minimal sensation of pressure from recent epidural bolus. Dr. Spence updated.
--- NOTE | 2024-08-05 12:16 | P.PCNOB_ITS ---
OB - Vaginal Delivery Note Procedure Delivery date: 08/05/24 Events: Positive Group B Strep (GBS) Induction method: AROM Delivery monitor: External FHT and External Uterine Route of delivery: Episiotomy description: None Laceration Description: None Specimen: No Quantitative Blood Loss (ml): 130 Anesthesia type: Epidural Disposition: Floor Complications: No immediate complications Narrative: Marie arrived for IOL at term d/t advanced dilation. Membranes were ruptured and ctx increased. She received an epidural for analgesia and progressed to complete dilation. She pushed for several minutes with minimal descent and was allowed rest. Once pushing resumed, she progressed well. She brought the head to a complete crown. With the next contraction the head delivered with no maternal expulsive effort. There was fair restitution and easily delivery of both the anterior and posterior shoulders. The remainder of the was delivered and placed on the maternal abdomen and dried and stimulated by the nursery staff. There was a large passage of meconium at this time. After one minute of life, the cord was doubly clamped and cut. Cord blood, cord gasses, and a cord segment were obtained. There was spontaneous delivery of the placenta in the Arnold presentation. Uterine tone and hemostasis were excellent. All counts correct. Mother and baby skin to skin in the delivery room. [place] Baby Date of : 08/05/24 Time of : 14:29 Gestational Age by Date: 37 gender: Female Weight (pounds): 8 Weight (ounces): 7 presentation: vertex position: Right Occiput Anterior Placenta delivery description: Spontaneous and Normal Configuration Cord Vessel Description: 3 Vessels and Delayed Cord Clamping score one minute: 8 score five minutes: 9
--- NOTE | 2024-08-05 12:18 | P.DS_ITS ---
DS: Admitting Diagnosis Discharge Date 08/06/24 <Zena Spence MD - Last Filed: 08/06/24 07:54> Admitting Diagnosis 28y.o. at term IOL <Melanie Arias CNM - Last Filed: 08/05/24 14:55> DS: Discharge Diagnosis Discharge Diagnosis (1) (normal spontaneous vaginal delivery): Code(s): O80 - Encounter for full-term uncomplicated delivery <Melanie Arias CNM - Last Filed: 08/05/24 14:55> Status: Acute <Melanie Arias CNM - Last Filed: 08/05/24 14:55> (2) Intends to breastfeed: Status: Acute <Melanie Arias CNM - Last Filed: 08/05/24 14:55> OB - DS: Summary Hospital Course Hospital Course: Uncomplicated <Melanie Arias CNM - Last Filed: 08/05/24 14:55> OB Procedures : Ultrasound <Melanie Arias CNM - Last Filed: 08/05/24 14:55> OB Procedures Intrapartum: Spontaneous Vag Delivery and GBS prophylaxis <Melanie Arias CNM - Last Filed: 08/05/24 14:55> OB Procedures: : None <Melanie Arias CNM - Last Filed: 08/05/24 14:55> Peripartum Data Infant Delivery Method: Natural Vaginal <Melanie Arias CNM - Last Filed: 08/05/24 14:55> Laceration Description: None <Melanie Arias CNM - Last Filed: 08/05/24 14:55> Episiotomy description: None <Melanie Arias CNM - Last Filed: 08/05/24 14:55> complications: none <Melanie Arias CNM - Last Filed: 08/05/24 14:55> Status at Discharge Functional status at discharge: independent ambulation <Melanie Arias CNM - Last Filed: 08/05/24 14:55> Overall status at discharge: patient is progressing back to baseline <Melanie Arias CNM - Last Filed: 08/05/24 14:55> Time Spent with Patient Time attestation: Total time spent providing and/or coordinating discharge services: <Melanie Arias CNM - Last Filed: 08/05/24 14:55> DS: Data Data Completed and Pending Labs on day of discharge: Labs from last 24 hours 08/05/24 06:13 WBC 7.1 RBC 4.22 Hgb 13.7 Hct 39.9 MCV 94.5 MCH 32.5 MCHC 34.3 RDW 13.1 Plt Count 187 MPV 10.4 Immature Gran % (Auto) 0.7 H Neut % (Auto) 70.4 Lymph % (Auto) 20.8 [place] % (Auto) 6.7 Eos % (Auto) 1.3 Baso % (Auto) 0.1 L Lymph # (Auto) 1.48 [place] # (Auto) 0.5 Eos # (Auto) 0.1 Baso # (Auto) 0.0 Abs Immat Gran (auto) 0.05 H Absolute Neuts (auto) 5.0 Absolute Nucleated RBC 0.000 Nucleated RBC % 0.0 RPR Non-reactive HIV 1&2 Ab/P24 Ag 4thGn Negative Blood Type A Positive Antibody Screen Negative <Melanie Arias CNM - Last Filed: 08/05/24 14:55> Discharge Plan Discharge Attending physician on discharge: Zena Spence <Melanie Arias CNM - Last Filed: 08/05/24 14:55> Zena Spence <Zena Spence MD - Last Filed: 08/06/24 07:54> Discharging Clinician: Zena Spence <Melanie Arias CNM - Last Filed: 08/05/24 14:55> Zena Spence <Zena Spence MD - Last Filed: 08/06/24 07:54> Patient Disposition: Home, Self-Care <Melanie Arias CNM - Last Filed: 08/05/24 14:55> Activity: may shower and pelvic rest <Melanie Arias CNM - Last Filed: 08/05/24 14:55> may shower and pelvic rest <Zena Spence MD - Last Filed: 08/06/24 07:54> Diet: as tolerated <Melanie Arias CNM - Last Filed: 08/05/24 14:55> as tolerated <Zena Spence MD - Last Filed: 08/06/24 07:54> Wound Care Instructions: follow printed instructions <Melanie Arias CNM - Last Filed: 08/05/24 14:55> follow printed instructions <Zena Spence MD - Last Filed: 08/06/24 07:54> Discharge Instructions: Continue taking your vitamin and any other supplements as previously directed (Examples: Iron, Vitamin D). You may take Tylenol 1000mg over the counter every 6 hours as needed for pain. Do not exceed 4000mg of Tylenol daily. You may continue using tucks pads and dermoplast spray if needed for a few more days. Depression * Notify provider for signs or symptoms. These may include- * Feelings: Feeling anxious, angry, hopeless, guilt, or loss of intere st/pleasure in activities you normally enjoy. Mood swings or panic attacks. * General: Extreme fatigue, loss of your appetite, feeling restless. Crying excessively, irritability, insomnia * Psychological: Lack of concentration, depression or fear, unwanted thoughts * Weight: Significant gain or loss * Safety: Thoughts of harming yourself or your baby. <Melanie Arias CNM - Last Filed: 08/05/24 14:55> Patient Instructions: Antibiotic Form <Melanie Arias CNM - Last Filed: 08/05/24 14:55> Stand Alone Forms: General Discharge Information <Melanie Arias CNM - Last Filed: 08/05/24 14:55> Follow-up/Referrals: Melanie Arias CNM [Certified Nurse [employer] Examiner] - (6 weeks ) <Melanie Arias CNM - Last Filed: 08/05/24 14:55> Discharge Medications: New ibuprofen 600 mg tablet 600 mg PO Q6H PRN (Reason: pain) Qty: 30 0RF norethindrone (contraceptive) 0.35 mg tablet 0.35 mg PO DAILY Qty: 84 3RF Continued magnesium 250 mg Tablet 250 mg PO BID ergocalciferol (vitamin D2) [Vitamin D2] 1,250 mcg (50,000 unit) Capsule 1,250 mcg PO WEEKLY prenat.vits,grzegorz,mjf-fcqa-ymxom Tablet 1 tablet PO DAILY Discontinued aspirin 81 mg Tablet 81 mg PO DAILY <Melanie Arias CNM - Last Filed: 08/05/24 14:55> Date of admission: 08/05/24 05:58 <Melanie Arias CNM - Last Filed: 08/05/24 14:55> Primary Care Provider: CristhianSandra <Melanie Arias CNM - Last Filed: 08/05/24 14:55> Admitting Provider: Zena Spence <Melanie Arias CNM - Last Filed: 08/05/24 14:55> Attending physician on admission: Zena Spence <Melanie Airas CNM - Last Filed: 08/05/24 14:55> Condition: Stable <Melanie Arias CNM - Last Filed: 08/05/24 14:55>
[2024-08-05] MEDS: OXYTOCIN 30 UNITS/NS 500 ML 30 UNITS/500 ML BAG 999 UNITS IV CONT (14:38)
[2024-08-05] MEDS: OXYTOCIN 30 UNITS/NS 500 ML 30 UNITS/500 ML BAG 125 UNITS IV CONT (15:04)
[2024-08-05] MEDS: BENZOCAINE 20% AER SPR (*SP) 56 GM CAN 1 SPRAY TOPICAL (17:00)
[2024-08-05] MEDS: WITCH HAZEL 40 PADS 1 PAD TOPICAL (17:00)
--- NOTE | 2024-08-05 17:27 | PC.NURSE ---
Patient transferred to post room #281 via wheelchair. Support person present. Oriented to unit, room, information board, rooming in, admission packet and security measures. Patient verbalizes understanding.
[2024-08-05] MEDS: IBUPROFEN 600 MG TABLET PO (17:59)
[2024-08-06] MEDS: IBUPROFEN 600 MG TABLET PO ×2 (04:15→15:04)
[2024-08-06 05:08] LABS: Hematocrit 33.9 % (37.0-47.0); Hemoglobin 11.8 g/dL (12.0-15.0)
[2024-08-06] MEDS: WITCH HAZEL 40 PADS 1 PAD TOPICAL (07:04)
[2024-08-06] MEDS: BENZOCAINE 20% AER SPR (*SP) 56 GM CAN 1 SPRAY TOPICAL (07:04)
[2024-08-06] MEDS: MAGNESIUM 13.5 MG TABLET (250 MG MAG GLUCONATE) BY MOUTH (07:04)
[2024-08-06] MEDS: MULTIVIT/MIN/PREN/FOL AC/IRON TABLET 1 TAB PO (07:04)
--- NOTE | 2024-08-06 07:35 | PC.NURSE ---
[id number] Introductions made, name written on patient board. Consulted with patient to assess needs related to . Discussed with mother her successes, concerns and any questions she has. We reviewed working with the infant, supporting breast, protecting her nipples with an optimal deep latch, good positioning, and good hand washing. Encouraged understanding the benefits of skin to skin, responding to feeding cues, frequencies of feeding 8-12 times in 24 hours (approximately 2-3 hours), duration of feedings, milk production, intake/output feeding sheet and signs of adequate intake encouraging swallowing at the breast. Reviewed positioning and alignment, supporting breast, off-centered (asymmetrical latch) and leading with the chin with big, open, wide gape. latched optimally to the left breast in cradle position. Education given to the mother of how to visualize the suckling (with good rocking jaw motion) swallows (dropping of the lower jaw) and how to listen for drinking at the breast (the ka sound). The was able to maintain latch without discomfort to mother. Nipple care reviewed with optimal latch, good positioning and using clean hands when touching her breast. Resources used to facilitate learning were used from the visual handouts and the mom and baby guide. Mother voiced understanding of the education shared, to call for assistance if the infant does not latch or if there is discomfort with . Reported to the Primary RN.
[2024-08-06 07:45] VITALS: BP 121/76; PULSE 73; RESP 16; TEMP 36.7; O2SAT 99
--- NOTE | 2024-08-06 07:52 | PM.OBPNVD ---
OB - PN: Subj Subjective Date/time seen: 08/06/24 07:52 Patient comments: no complaints and pain well controlled baby status: doing well OB - PN: Obj Data Labs 08/06/24 04:19 Labs: Laboratory Results - last 24 hr 08/06/24 04:19 Hgb 11.8 L Hct 33.9 L OB - PN A/P Plan day: 1 Plan: routine care, discharge home, follow up 6 weeks and other (micronor for bc to start at 3 wks) Time Spent With Patient Time: Total time spent is greater than 50% in coordination of care (as documented) at patient's floor/unit and/or counseling patient: Exam : Bimanual exam- vagina & uterus: other (Uterus firm, nt @U)
[2024-08-06 11:53] VITALS: BP 121/64; PULSE 79; RESP 16; TEMP 36.8; O2SAT 100
[2024-08-07 08:31] VITALS: BP 128/83; PULSE 83; RESP 18; TEMP 36.7; O2SAT 100
== END 2024-08-06 16:40 | disposition home or self-care (01) | DRG 807 ==
LOC: ANHLDR 12:19 → ANHOB2 17:29
PROVIDERS: Advanced Practice Midwife; Admitting Provider Obstetrics & Gynecology Gynecology; PCP Internal Medicine; Visit Provider Obstetrics & Gynecology Gynecology
DX: O99.824 Streptococcus B carrier state complicating childbirth (principal); Z37.0 Single live birth; Z3A.39 39 weeks gestation of pregnancy
CPT/HCPCS: 36415; 85014; 85018; 85025; 86592; 86703; 86850; 86900; 86901; A9270; G0432; J0290; J2405; J2590; J2795; J3010; J7120